=== PATIENT | male | born 1960 | race Hispanic/Latino ===

== ENCOUNTER 2021-06-12 17:22 | Emergency (ER) | payer OTHER, SELFPAY ==
[2021-06-12 17:37] VITALS: BP 142/82; PULSE 85; RESP 16; TEMP 37.5; O2SAT 95
--- NOTE | 2021-06-12 19:04 | ED.DENTAL ---
HPI - Dental/Oral General Chief complaint: Dental/Oral Stated complaint: Tooth Pain Time Seen by Provider: 06/12/21 18:50 Source: patient, RN notes reviewed and old records reviewed Mode of arrival: ambulatory Limitations: no limitations History of Present Illness HPI Narrative: 61-year-old man with complaints of dental pain to the right upper posterior molar for the past 2 days with swelling and redness noted to the gum area. Patient also has facial swelling on the right side of his face which started today. Patient states he previously lived in [place] and has a find dentist in the area. Patient states he has not applied ice or taken any ibuprofen or Tylenol for his discomfort. Patient able to open mouth without difficulty no difficulty, with swallowing verbalized. MD Complaint: tooth pain Location: Tooth # (2) Onset (ago): day(s) (2) Treatment prior to arrival: none Related Data Allergies Allergy/AdvReac Type Severity Reaction Status Date / Time acetaminophen [From Tylenol] AdvReac Nose Bleed Verified 06/12/21 19:21 Review of Systems Review of Systems: CONSTITUTIONAL: Denies fever, chills, or sweats. EYES: Denies visual changes, redness, or discharge. ENT: Denies rhinorrhea, congestion, sore throat, or otalgia. Positive for right upper jaw dental abscess with facial swelling CARDIOVASCULAR: Denies chest pain, palpitations, or edema. RESPIRATORY: Denies cough or dyspnea. GASTROINTESTINAL: Denies abdominal pain, nausea, vomiting, or diarrhea. GENITOURINARY: Denies dysuria or hematuria. SKIN: Denies rash or itching. MUSCULOSKELETAL: Denies back pain, joint pain, or myalgia. NEUROLOGIC: Denies headache, numbness, or weakness. PSYCHIATRIC: Denies anxiety or depression. All systems reviewed & are unremarkable except as noted in HPI and below PMFSH Social History Social History (Updated 06/13/21 @ 10:29 by Rosalie James NP) Smoking status: Former smoker Alcohol intake: unknown Substance use: unknown Living arrangements: with family Gender identity (if verbalized by the patient): Male Comments At time of signature, agree with nursing past medical, surgical, social and family history. There is no relevant family history pertinent to the presenting complaint Exam Narrative: GENERAL: Well-appearing, well-nourished, and in no acute distress. HEAD: Normocephalic, atraumatic. EYES: PERRLA and EOMI. ENT: Nares clear, no rhinorrhea or epistaxis. Mucous membranes moist. TMs normal with no redness or swelling, throat has no redness no lesions or exudates no tonsillar swelling. Edema redness of right most posterior molar with right-sided facial swelling and pain, no trismus or Kannan angina noted NECK: Supple. No lymphadenopathy CHEST: Clear to auscultation. No respiratory distress. SaO2 95% on room air HEART: Regular rate and rhythm. No murmur heard. Normal peripheral pulses. ABDOMEN: Soft, nontender, nondistended, normal active bowel sounds. EXTREMITIES: Normal range of motion. No edema. SKIN: Warm, dry, no rash. NEURO: No focal deficits. Alert and oriented x3. Course Course Level of Care: Express Care Visit Vital Signs Vital signs: Vital Signs Temperature 37.5 C 06/12/21 17:37 Pulse Rate 85 06/12/21 17:37 Respiratory Rate 16 06/12/21 17:37 Blood Pressure 142/82 H 06/12/21 17:37 Pulse Oximetry 95 06/12/21 17:37 Temperature 37.5 C 06/12/21 17:37 Pulse Rate 85 06/12/21 17:37 Respiratory Rate 16 06/12/21 17:37 Blood Pressure 142/82 H 06/12/21 17:37 Pulse Oximetry 95 06/12/21 17:37 MDM - Dental/Oral Differential Diagnosis Differential diagnosis: Likely gingival abscess, toothache, dental abscess and other (facial swelling) Medical Records Attestation: I reviewed the patient's medical records. Critical Care Time Critical Care Time Critical Care Time: No Discharge Plan Discharge Clinical Impression: Dental abscess, Facial swelling Patient Disposition: Home,
== END 2021-06-12 19:15 | disposition home or self-care (01) ==
PROVIDERS: Emergency Provider Registered Nurse
DX: K04.7 Periapical abscess without sinus (principal); Z87.891 Personal history of nicotine dependence
CPT/HCPCS: 99213; G0463

== ENCOUNTER 2021-08-18 17:36 | Emergency (ER) | payer OTHER, SELFPAY ==
[2021-08-18 17:45] VITALS: BP 108/80; PULSE 76; RESP 16; TEMP 37.3; O2SAT 98
--- NOTE | 2021-08-18 18:01 | ED.DENTAL ---
HPI - Dental/Oral General Chief complaint: Dental/Oral Stated complaint: tooth pain Time Seen by Provider: 08/18/21 17:53 Source: patient, RN notes reviewed and old records reviewed Mode of arrival: ambulatory Limitations: no limitations History of Present Illness HPI Narrative: Patient presents today complaining of right upper dental pain since this morning. This tooth has been bothering him for several months, with his last visit to express care being 2 months ago when he was placed on penicillin. He does have an appointment with a new dentist, but not till December 20. He has quit smoking. Currently rates his pain 4/10 and has been using peroxide and salt water without much relief. Denies shortness of breath or difficulty swallowing. MD Complaint: tooth pain Related Data Allergies Allergy/AdvReac Type Severity Reaction Status Date / Time acetaminophen [From Tylenol] AdvReac Nose Bleed Verified 06/12/21 19:21 Review of Systems Review of Systems: CONSTITUTIONAL: Denies body aches, fever, chills, or sweats. EYES: Denies visual changes, redness, or discharge. ENT: Denies rhinorrhea, congestion, sore throat, or otalgia.+ Tooth pain CARDIOVASCULAR: Denies chest pain, palpitations, or edema. RESPIRATORY: Denies cough or dyspnea. GASTROINTESTINAL: Denies abdominal pain, nausea, vomiting, or diarrhea. GENITOURINARY: Denies dysuria or hematuria. SKIN: Denies rash, itching, or wounds. MUSCULOSKELETAL: Denies back pain, joint pain, or myalgia. NEUROLOGIC: Denies headache, numbness, tingling, or weakness. PSYCH: Denies depression or anxiety. [facility] Social History Social History Smoking status: Former smoker Alcohol intake: unknown Substance use: unknown Gender identity (if verbalized by the patient): Male Comments At time of signature, I have reviewed and agree with nursing past medical, surgical, social and family history unless otherwise noted. Please see nursing chart for further information. There is no relevant family history pertinent to the presenting complaint Exam Narrative: GENERAL: Well-appearing, well-nourished, and in no acute distress. HEAD: Normocephalic, atraumatic. EYES: EOMI. No redness or drainage. Conjunctivae normal. ENT: Mucous membranes pink and moist. Throat normal. Uvula midline.+ Tooth #2 is loose and tender to palpation. The surrounding gumline is mildly erythematous without obvious periapical abscess. NECK: Normal AROM. CHEST: No respiratory distress. EXTREMITIES: Normal range of motion. No edema. SKIN: Warm, dry, no rash. Capillary refill normal. Normal skin turgor. NEURO: No focal deficits. Alert and oriented x3. Gait steady. PSYCH: Normal affect. No signs of depression or anxiety. Course Course Level of Care: Express Care Visit Vital Signs Vital signs: Vital Signs Temperature 99.2 F 08/18/21 17:45 Pulse Rate 76 08/18/21 17:45 Respiratory Rate 16 08/18/21 17:45 Blood Pressure 108/80 08/18/21 17:45 Pulse Oximetry 98 08/18/21 17:45 Temperature 99.2 F 08/18/21 17:45 Pulse Rate 76 08/18/21 17:45 Respiratory Rate 16 08/18/21 17:45 Blood Pressure 108/80 08/18/21 17:45 Pulse Oximetry 98 08/18/21 17:45 Reviewed MDM - Dental/Oral Differential Diagnosis Differential diagnosis: Likely gingival abscess, dental caries, toothache and dental abscess Critical Care Time Critical Care Time Critical Care Time: No Discharge Plan Discharge Clinical Impression: Toothache Patient Disposition: Home, Self-Care Condition: Stable Instructions: Antibiotic Form, Toothache (ED) Additional Instructions: Please take amoxicillin as prescribed until gone. You have been given suggestions for dentist in the area. Please call and see if you can get sooner appointment to get this tooth taken care of. Take ibuprofen or Aleve for pain. Patient Language: Bruneian Prescriptions: New amoxicil
== END 2021-08-18 18:14 | disposition home or self-care (01) ==
PROVIDERS: Emergency Provider Nurse Practitioner
DX: K08.89 Other specified disorders of teeth and supporting structures (principal); Z87.891 Personal history of nicotine dependence
CPT/HCPCS: 99213; G0463

== ENCOUNTER 2021-11-10 12:48 | Emergency (ER) | payer OTHER, SELFPAY ==
--- NOTE | ~2021-11-10 | XR_ITS ---
EXAMINATION: XR chest 2V DATE: 11/10/2021 13:30 INDICATION: Productive cough TECHNIQUE: PA and lateral views of the chest are obtained. COMPARISON: None available FINDINGS: There are airspace opacities of the right upper lobe. There is no pleural effusion or pneum othorax. The cardiomediastinal silhouette is normal. There is mild thoracic spondylosis. IMPRESSION: 1. Right upper lobe airspace opacities which may reflect pneumonia. Recommend followup radiographs in 10-14 days after appropriate therapy to evaluate for improvement/resolution given history of tobacco use as malignancy could have a similar appearance. Reviewed, dictated and finalized at location A. IMPRESSION: 1. Right upper lobe airspace opacities which may reflect pneumonia. Recommend f ollowup radiographs in 10-14 days after appropriate therapy to evaluate for imp rovement/resolution given history of tobacco use as malignancy could have a sim ilar appearance.
[2021-11-10 12:57] VITALS: BP 129/81; PULSE 93; RESP 16; TEMP 36.9; O2SAT 98
--- NOTE | 2021-11-10 13:50 | ED.GENADULT ---
HPI - General Adult General Chief complaint: Unspecified Stated complaint: not feeling well Time Seen by Provider: 11/10/21 13:10 Source: patient Mode of arrival: ambulatory Limitations: no limitations History of Present Illness HPI narrative: 61-year-old male presents with complaint of cough, chest congestion, chills, fatigue 2 weeks ago. Reports that symptoms lasted several days, took Mucinex and then felt better. Denies fever. Reports yesterday started with same symptoms again. Is COVID vaccinated. No known COVID exposure. Is taking ampicillin and flu antiviral from the [facility] and has been using his friend's albuterol inhaler . Patient is not in any respiratory distress. Speaking in full sentences. Reports that he stopped smoking approximately 5 to 6 months ago. All systems reviewed and negative except as noted above. Related Data Allergies Allergy/AdvReac Type Severity Reaction Status Date / Time acetaminophen [From Tylenol] AdvReac Nose Bleed Verified 11/10/21 13:13 Review of Systems Review of Systems: CONSTITUTIONAL: Denies fever. Reports chills and sweats. EYES: Denies visual changes, redness, or discharge. ENT: Reports rhinorrhea, congestion. Denies sore throat and otalgia. CARDIOVASCULAR: Denies chest pain, palpitations, or edema. RESPIRATORY: Reports cough. Denies dyspnea. GASTROINTESTINAL: Denies abdominal pain, nausea, vomiting, or diarrhea. GENITOURINARY: Denies dysuria or hematuria. SKIN: Denies rash or itching. MUSCULOSKELETAL: Denies back pain, joint pain, or myalgia. NEUROLOGIC: Denies headache, numbness, or weakness. PSYCHIATRIC: Denies anxiety or depression. All other systems reviewed are negative, except as documented in HPI. PMFSH Social History Social History Smoking status: Former smoker Alcohol intake: unknown Substance use: unknown Gender identity (if verbalized by the patient): Male Comments At time of signature, agree with nursing past medical, surgical, social and family history. There is no relevant family history pertinent to the presenting complaint. Exam Narrative: GENERAL: This is a well-nourished, well-developed patient, in no apparent distress. HEAD: normocephalic, atraumatic. EYES: PERRL. Sclera clear/white. Vision is grossly intact. EARS: External ears normal, auditory canals clear and without drainage, TMs normal without perforation. Hearing grossly intact. NOSE: External nose normal with no obvious nasal discharge, nares without redness, no rhinorrhea. THROAT: Mucous membranes moist, posterior pharynx clear. NECK: Neck supple, non-tender without lymphadenopathy, masses or thyromegaly. CARDIOVASCULAR: Regular rate and rhythm without murmurs, gallops, or rubs. RESPIRATORY: Decreased lungs throughout all lung [place]. No respiratory distress. SKIN: warm, Dry, intact with no suspicious lesions or rash, good texture and turgor. NEURO: awake, alert, and oriented to person, place and time. There were no obvious focal neurologic abnormalities. EXTREMITIES: normal range of motion to all extremities. Course Course Level of Care: Express Care Visit Vital Signs Vital signs: Vital Signs Temperature 36.9 C 11/10/21 12:57 Pulse Rate 93 11/10/21 12:57 Respiratory Rate 16 11/10/21 12:57 Blood Pressure 129/81 11/10/21 12:57 Pulse Oximetry 98 11/10/21 12:57 Oxygen Delivery Room Air 11/10/21 12:57 Temperature 36.9 C 11/10/21 12:57 Pulse Rate 93 11/10/21 12:57 Respiratory Rate 16 11/10/21 12:57 Blood Pressure 129/81 11/10/21 12:57 Pulse Oximetry 98 11/10/21 12:57 Oxygen Delivery Room Air 11/10/21 12:57 Reviewed Medical Decision Making MDM Narrative Medical decision making narrative: Discussed x-ray results with patient. Will start on doxycycline for possible pneumonia. Explained to patient that radiologist could not rule out possible malignancy (lung
== END 2021-11-10 14:00 | disposition home or self-care (01) ==
PROVIDERS: Emergency Provider Nurse Practitioner Family
DX: J18.9 Pneumonia, unspecified organism (principal); Z87.891 Personal history of nicotine dependence
CPT/HCPCS: 71046; 99213; G0463